=== PATIENT | male | born 1980 | race Caucasian/White ===

== ENCOUNTER 2018-10-09 23:39 | Emergency (ER) | payer OTHER ==
[2018-10-09] MEDS ORDERED: Ondansetron PF 4 MG/2 ML Vial ONE ×2 (23:50→23:59)
[2018-10-09] MEDS ORDERED: Morphine 4 MG/ML VIAL ONE (23:50)
[2018-10-10 00:06] LABS: Bilirubin Negative (Negative); Blood, Urine Negative (Negative); Clarity CLEAR (Clear); Glucose, Urine (Dipstick) Negative (Negative); Leukocyte Negative (Negative); Nitrite Negative (Negative); Protein, Urine (Dipstick) Negative (Neg-Trace); Specific Gravity, Urine 1.007 (1.002-1.036); Urobilinogen 0.2 mg/dL (0.2-1.0); pH, Urine 7.5 (5.0-9.0)
[2018-10-10 00:31] LABS: #Eosinphils 0.1 thou/uL (0.0-0.7); #Lymphocytes 1.7 thou/uL (1.20-3.40); #Monocytes 0.6 thou/uL (0.11-0.59); #Neutrophils 6.4 thou/uL (1.40-6.50); %Basophils 0.4 % (0.0-1.0); %Eosinophils 1.1 % (0.0-10.0); %Lymphocytes 19.5 % (21.0-51.0); %Monocytes 6.8 % (0.0-10.0); %Neutrophils 72.2 % (42.0-75.0); Hemoglobin 14.1 g/dL (14.0-18.0); Mean Corpuscular HGB CONC 32.2 g/dL (32.0-36.0); Mean Corpuscular Hemoglobin 29.9 pg (27.0-31.0); Mean Platelet Volume 9.1 fL (7.4-10.4); Platelet Count 170 thou/uL (130-400); RBC Distribution Width 13.2 % (11.5-14.5); Red Blood Cell (RBC) Count 4.72 mill/uL (4.70-6.10); White Blood Cell (WBC) Count 8.8 thou/uL (4.8-10.8)
[2018-10-10 00:49] LABS: ALT (SGPT) 25 U/L (8-55); AST (SGOT) 27 U/L (5-34); Albumin 4.4 g/dL (3.5-5.0); Alkaline Phosphatase 91 U/L (40-150); Anion Gap 17 mmol/L (10-20); BUN (Urea Nitrogen) 13 mg/dL (8.9-20.6); Bilirubin, Total 0.8 mg/dL (0.2-1.2); Calc. Creatinine Clearance 0 mL/min (70-130); Calcium 9.9 mg/dL (7.8-10.44); Carbon Dioxide 19 mmol/L (22-29); Chloride 103 mmol/L (98-107); Estimated GFR-MDRD 73; Globulin 3.5 g/dL (2.4-3.5); Glucose 96 mg/dL (70-105); Potassium 4.4 mmol/L (3.5-5.1); Protein, Total 7.9 g/dL (6.0-8.3); Sodium 135 mmol/L (136-145)
--- NOTE | 2018-10-10 12:56 | ULT ---
PRELIMINARY REPORT/[facility]/EMERGENTY AFTER-HOURS PROCEDURE US Scrotum and US Duplex Artery or Vein, Scrotum, Limited EXAM DATE/TIME: 10/10/2018 12:35 AM CLINICAL HISTORY: 37 years old, male; Other: RT testicle pain; Prior surgery; Surgery date: 6+ months; Surgery type: Lt testicle removed TECHNIQUE: Imaging protocol: Real-time ultrasound of the scrotum. Real-time duplex ultrasound scan of the arteri al or venous flow of the scrotum with B-mode, color Doppler flow and spectral waveform analysis. Limi ajith exam. COMPARISON: No relevant prior studies available. FINDINGS: Ultrasound was performed for evaluation of right testicle pain. Duplex ultrasound scan with color Dop pler flow and spectral waveform analysis was also performed for evaluation of testicular blood flow a nd to rule out torsion. Right Testicle: No acute findings. No mass. Normal duplex of the ovary. No evidence of torsion. Left Testicle: Surgically absent. Epididymides: No acute findings. Tiny right epididymal cyst. Scrotum: No acute findings. IMPRESSION: No acute findings. Thank you for allowing us to participate in the care of your patient. Dictated and Authenticated by: Pedrito Brothers MD 10/10/2018 1:16 AM Central Time ([place] & [place]) FINAL REPORT TESTICULAR ULTRASOUND: COMPARISON: 06/30/2015. HISTORY: Right testicular pain. Previous left testicle removal. TECHNIQUE: De Dios scale, color flow, Doppler imaging, and spectral waveform analysis was performed of the right te sticle. FINDINGS: This report is in agreement with the preliminary report by [facility]. No acute abnormality with regards to the right testicle. The left testicle is surgically absent. POS: OFF
== END 2018-10-10 01:17 | disposition home or self-care (01) ==
LOC: ERS 23:39
DX: N50.811 Right testicular pain (principal); I10 Essential (primary) hypertension
CPT/HCPCS: 36415; 76870; 80053; 81003; 83605; 85025; 87086; 93976; 96374; 96375; J2270; J2405